=== PATIENT | female | born 1985 | race American Indian/Alaskan Native ===

== ENCOUNTER 2017-04-26 13:45 | Emergency (ER) | payer OTHER ==
[2017-04-26] MEDS ORDERED: TYLENOL ONE (16:55)
[2017-04-26] MEDS ORDERED: TYLENOL PO ONE (16:57)
[2017-04-26 17:31] LABS: Hematocrit 41.3 % (30.3-42.9); Hemoglobin 13.4 gm/dl (10.1-14.3); Mean Corpuscular HGB Conc 33 % (30-34); Mean Corpuscular Volume 80 fl (79-97); Platelet Count 339 K/mm3 (140-440); Red Blood Count 5.18 M/mm3 (3.65-5.03); Red Cell Distribution Width 15.9 % (13.2-15.2)
[2017-04-26 17:32] LABS: Mean Corpuscular Hemoglobin 26 pg (28-32)
[2017-04-26 17:54] LABS: BUN/Creatinine Ratio 20; Blood Urea Nitrogen 10 mg/dL (7-17); Calcium 9.4 mg/dL (8.4-10.2); Hemolysis Index 2
[2017-04-26 18:07] LABS: Bacteria,Urine 1+ /HPF (Negative); Bilirubin,Urine NEG (Negative); Blood,Urine NEG (Negative); Color,Urine Yellow (Yellow); Mucus,Urine FEW /HPF; Nitrite,Urine NEG (Negative); Protein,Urine <15 mg/dL mg/dL (Negative)
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
[2017-04-26 19:28] VITALS: BP 101/65
[2017-04-26] MEDS ORDERED: MOTRIN PO ONE (19:45)
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
== END 2017-04-26 20:41 | disposition home or self-care (01) ==
LOC: ED 13:45
DX: S00.03XA Contusion of scalp, initial encounter (principal); G44.319 Acute post-traumatic headache, not intractable; S13.4XXA Sprain of ligaments of cervical spine, initial encounter; V89.2XXA Person injured in unspecified motor-vehicle accident, traffic, initial encounter; W22.19XA Striking against or struck by other automobile airbag, initial encounter; Y93.89 Activity, other specified; Y99.8 Other external cause status; Y92.410 Unspecified street and highway as the place of occurrence of the external cause
CPT/HCPCS: 36415; 70450; 72125; 80048; 81001; 84703; 85027